=== PATIENT | female | born 1990 | race Caucasian/White ===

== ENCOUNTER 2016-04-29 16:43 | Emergency (ER) | payer BC ==
[~2016-04-29] VITALS: Ht 172.7 cm; Wt 73.5 kg
[2016-04-29] MEDS ORDERED: ONDANSETRON HCL/PF 4 MG/2 ML VIAL ONE (17:57)
[2016-04-29] MEDS ORDERED: IV NS 0.9% 1,000 ML ONE (17:57)
[2016-04-29] MEDS ORDERED: IV SET PRIMARY 1 EA INFUS.SET MC ONE (17:57)
[2016-04-29] MEDS ORDERED: ONDANSETRON HCL/PF 4 MG/2 ML VIAL IV ONE (18:00)
[2016-04-29] MEDS ORDERED: IV NS 0.9% 1,000 ML BAG IV ONE (18:00)
[2016-04-29 19:24] VITALS: BP 125/71
== END 2016-04-29 19:25 | disposition home or self-care (01) ==
LOC: ER 16:45
DX: E86.0 Dehydration (principal); F11.20 Opioid dependence, uncomplicated
CPT/HCPCS: A4606; J2405; J7030; Z7610